=== PATIENT | female | born 1980 | race Caucasian/White ===

== ENCOUNTER 2023-05-18 12:50 | Outpatient (CLI) | payer OTHER | END 2023-05-18 13:39 | disposition home or self-care (01) | LOC: NST 12:50 | PROVIDERS: ATTEND Obstetrics & Gynecology Gynecology | DX: Z34.83 Encounter for supervision of other normal pregnancy, third trimester (principal) ==

== ENCOUNTER 2023-06-08 11:15 | Inpatient (IN) | payer OTHER ==
[~2023-06-08] VITALS: Ht 162.6 cm; Wt 108.0 kg
[2023-06-08] MEDS ORDERED: PRENATABS RX T1 EACH PO (13:21)
== END 2023-06-16 13:41 | disposition home or self-care (01) | DRG 785 ==
LOC: O/R 06-13 08:38 → OB/GYN 06-13 08:38
PROVIDERS: ADMIT Obstetrics & Gynecology; ATTEND Obstetrics & Gynecology
PROC: 0UB70ZZ Excision of Bilateral Fallopian Tubes, Open Approach (ICD-10-PCS; 2023-06-13)
PROC: 4A1HXCZ Monitoring of Products of Conception, Cardiac Rate, External Approach (ICD-10-PCS; 2023-06-13)
PROC: 10D00Z1 Extraction of Products of Conception, Low, Open Approach (ICD-10-PCS; principal; 2023-06-13 15:15)
DX: O34.211 Maternal care for low transverse scar from previous cesarean delivery (principal); O36.63X0 Maternal care for excessive fetal growth, third trimester, not applicable or unspecified; Z3A.39 39 weeks gestation of pregnancy; Z30.2 Encounter for sterilization; Z37.0 Single live birth; Z20.822 Contact with and (suspected) exposure to COVID-19